=== PATIENT | male | born 1980 | race African-American/Black ===

== ENCOUNTER 2021-10-14 10:45 | Inpatient (IN) | payer OTHER, SELFPAY ==
[2021-10-14] VITALS (9 sets, daily range): BP systolic 133–199; BP diastolic 72–97; PULSE 78–103; RESP 18–23; TEMP 36.1–37; O2SAT 87–99; BMI 70.0
--- NOTE | ~2021-10-14 | CT_ITS ---
EXAMINATION: CTA chest PE protocol DATE: 10/14/2021 14:04 INDICATION: Shortness of breath. Fever. TECHNIQUE: Computed tomography angiography (CTA) of the chest was performed with 100 mL Omnipaque-350 intravenous contrast timed to evaluate the pulmonary arteries. Coronal maximum intensity projection 3D-reconstructions were created by the technologist. Automated exposure control and iterative reconst ruction technique were employed. The dose-length product was 895.92 mGy-cm. COMPARISON: CT abdomen and pelvis 12/07/2014, chest 2 views 10/14/2021 FINDINGS: There are patchy airspace and groundglass opacities throughout the lungs bilaterally. No pl eural effusion. The heart size is normal. No pericardial effusion. There is mild mediastinal lymphade nopathy, likely reactive. There is no pulmonary embolus. There is mild thoracic spondylosis. IMPRESSION: 1. No pulmonary embolus. Sensitivity is moderately decreased by motion artifact and obesity. 2. Diffuse lung disease, consistent with pneumonia. COVID-19 testing is recommended. Reviewed, dictated and finalized at location B. T OPERATIONS VICE PRESIDENT IMPRESSION: 1. No pulmonary embolus. Sensitivity is moderately decreased by motion artifact and obesity. 2. Diffuse lung disease, consistent with pneumonia. COVID-19 testing is recomme nded.
--- NOTE | ~2021-10-14 | XR_ITS ---
EXAMINATION: XR chest 2V EXAM DATE: 10/14/2021 13:05 INDICATION: Cough, low blood pressure. Recent fever. Recent UTI. TECHNIQUE: Frontal and lateral projections of the chest obtained and reviewed. There is no prior zach dy for comparison. FINDINGS: Diffuse bilateral airspace disease. Appearance is consistent with COVID pneumonia which vincent uld be considered given appearance and community prevalence. Other infectious etiologies or edema als o possible. No pneumothorax or pleural effusion. There are no osseous abnormalities identified. Cardi omediastinal silhouette is normal. IMPRESSION: Diffuse bilateral acute airspace disease consider COVID pneumonia or ARDS/edema. Reviewed, dictated and finalized at location A. MANAGEMENT COORDINATOR
--- NOTE | 2021-10-14 10:58 | PC.NURSE ---
Pt noted to be 86% on RA and mildly sob, placed on 3L via NC increasing o2 to 94%, tolerating well.
--- NOTE | 2021-10-14 11:36 | ED.BACK ---
HPI - Back Pain/Injury General Chief Complaint: Back Pain/Injury Stated Complaint: pain in back since 10/07, fever Time Seen by Provider: 10/14/21 11:36 Source: patient Mode of arrival: ambulatory Limitations: no limitations History of Present Illness HPI Narrative: Patient is a 41-year-old male complaining of low back pain, 02/10, dull, accompanied by dysuria and fever that started approximately 1 week ago. Patient also states that he has been coughing, productive, clear yellow sputum accompanied by nasal congestion and body aches. Patient states that he has a history of urinary tract infections. Patient denies any chest pain, shortness of breath, abdominal pain, nausea, vomiting or diarrhea. Related Data Allergies Allergy/AdvReac Type Severity Reaction Status Date / Time No Known Allergies Allergy Unverified 12/07/14 20:12 Review of Systems Review of Systems: All systems reviewed & are unremarkable except as noted in HPI and below Constitutional: Constitutional: Denies excessive sweating, Denies fatigue, Denies headache(s), Denies lethargy, Denies malaise, Denies weakness and Denies weight loss Eyes: Eyes: Denies blurry vision, Denies change in vision and Denies loss of vision ENT: Denies dizziness, Denies ear discharge, Denies headache(s), Denies lip swelling, Denies epistaxis, Denies nasal congestion, Denies neck pain, Denies throat swelling and Denies tongue swelling Cardiovascular: Cardiovascular: Denies chest pain, Denies chest pain at rest, Denies chest pain with activity, Denies diaphoresis, Denies rapid heart rate, Denies edema, Denies irregular heart rhythm, Denies lightheadedness, Denies palpitations, Denies dyspnea and Denies dyspnea on exertion Respiratory: Respiratory: Denies chest congestion, Denies cough, Denies hemoptysis, Denies dyspnea and Denies dyspnea on exertion Gastrointestinal: Gastrointestinal: Denies abdominal pain, Denies melena, Denies hematochezia, Denies diarrhea, Denies nausea, Denies vomiting and Denies hematemesis Musculoskeletal: Musculoskeletal: Denies abnormal gait, Denies deformity, Denies joint swelling, Denies limited range of motion, Denies neck pain and Denies numbness Neurologic: Denies Abnormal speech present, Denies abnormal gait, Denies confusion, Denies dizziness, Denies headache(s), Denies focal weakness, Denies loss of vision, Denies numbness, Denies Other visual disturbances, Denies Sensory deficit (Neuro) and Denies weakness Psychiatric: Psychiatric: Denies confusion, Denies depression, Denies auditory hallucinations, Denies homicidal ideation and Denies suicidal ideation Endocrine: Endocrine: Denies cold intolerance, Denies excessive sweating, Denies fatigue, Denies heat intolerance and Denies palpitations Hematologic/Lymphatic: Hematologic/Lymphatic: Denies easy bleeding and Denies easy bruising Allergic/Immunologic: Allergic/Immunologic: Denies lip swelling, Denies throat swelling and Denies tongue swelling Exam Const: General: cooperative, comfortable, no acute distress, well developed, alert and awake; No confusion Nutritional Appearance: obese Orientation/consciousness: oriented to person, oriented to place, oriented to time, patient oriented x3 and No confusion Limitations: no limitations HENMT: Head: normal to inspection, normocephalic and atraumatic Ears: hearing grossly normal bilaterally, TM normal on the right and TM normal on the left General nose exam: Normal external nose present, Normal nares present and No nasal discharge present Face and sinus: normal facial exam Mouth: Yes Normal oral and palatal mucosa present, Yes lip normal, Yes tongue normal and Yes oropharynx normal Throat: posterior oropharynx normal, tonsils normal and uvula midline Eyes: General: appearance normal, both eyes and all related structures Pupils: Equal, round and reactive pupils present EOM: EOMs intact bilaterally Neck: Neck: normal visual inspection, full ROM, no lymphadenopathy and no
[2021-10-14] MEDS: SODIUM CHLORIDE 0.9% IV 1,000 ML 999 ML IV CONT (12:00)
[2021-10-14 12:10] LABS: Basophils Percent Auto 0.4 % (0.2-1.2); Eosinophils Percent Auto 0.2 % (0-4.4); Hematocrit 45.8 % (42.0-52.0); Hemoglobin 15.1 g/dL (14.0-18.0); Immature Granulocyte Absolute 0.02 K/mm3 (0.00-0.031); Immature Granulocyte Percent A 0.4 % (0-0.5); Lymphocytes Absolute Auto 1.37 K/mm3 (0.9-3.2); Lymphocytes Percent Auto 27.5 % (18.3-44.2); Mean Corpuscular Hemoglobin 28.8 pg (26-34); Mean Corpuscular Volume 87.4 fl (80-100); Mean Platelet Volume 10.6 fl (7.4-10.4); Monocytes Absolute Auto 0.4 K/mm3 (0.1-0.6); Monocytes Percent Auto 8.6 % (2.6-8.5); Neutrophils Absolute Auto 3.1 K/mm3 (1.3-6.7); Neutrophils Percent Auto 62.9 % (45.5-73.1); Platelet Count Result 278 k/mm3 (150-375); Red Blood Count 5.24 M/mm3 (4.6-6.20); Red Cell Distribution Width 14.4 % (11.5-14.5)
[2021-10-14 13:08] LABS: Alanine Aminotransferase 32 U/L (4-50); Albumin Level 4.2 g/dL (3.5-5.1); Alkaline Phosphatase 80 U/L (38-126); Anion Gap 8 mmol/L (8-16); Aspartate Amino Transferase 72 U/L (17-59); Bilirubin,Total 0.4 mg/dL (0.2-1.3); Blood Urea Nitrogen 9 mg/dL (9-20); Calcium 8.5 mg/dL (8.4-10.2); Carbon Dioxide 32 mmol/L (22-30); Chloride 94 mmol/L (98-107); Estimated CRCL calculation 132 ml/min; Estimated Glomerular Filt Rate > 60; Glucose 114 mg/dL (65-110); Potassium 3.8 mmol/L (3.4-5.0); Sodium 134 mmol/L (137-145)
--- NOTE | 2021-10-14 13:36 | ECG_ITS ---
Measurements Intervals [place] Rate: 94 P: 38 WY: 139 QRS: -31 QRSD: 90 T: 64 QT: 337 QTc: 423 Interpretive Statements SINUS RHYTHM LEFT AXIS DEVIATION INCOMPLETE RIGHT BUNDLE BRANCH BLOCK POOR R WAVE PROGRESSION, ANTERIOR LEADS BORDERLINE T WAVE ABNORMALITY- HIGH LATERAL LEADS BASELINE ARTIFACT- II, III, AVF, V3-V6 BORDERLINE ECG Electronically Signed On 10-14-2021 14:24:07 [employer]ATING [employer]PERATORS ENGINEER by Manny Alcaraz D.O.
[2021-10-14 13:52] LABS: Add Urine Microscopic? YES; Appearance Urine Cloudy (Clear); Bilirubin Urine Negative (Negative); Blood Urine Negative (Negative); Color Urine Amber (Yellow); Glucose Urine UA Negative (Negative); Ketones Urine Negative (Negative); Leukocyte Esterase Ur Negative LEU/UL (Negative); Mucus Urine Few /lpf; Nitrate Urine Negative (Negative); Protein Urine 3+ mg/dL (Negative); RBC Urine 0-2 /hpf (0-2); Specific Grav Ur 1.018 (1.001-1.035); Squamous Epithelial Cell Urine Occasional /hpf (Few)
[2021-10-14 14:11] LABS: Alveolar/Arterial O2 Gradient 80.9 mmHg; Base Excess ABG 4.7 mEq/l (+/-2.0); Carboxyhemoglobin 0.2 % THb (0-2.0); Device NASAL CANNULA; Fractional Inspired Oxygen 28 %; HCO3 ABG 30.1 mEq/l (22.0-26.0); Methemoglobin ABG 0.2 %THb (0-1.5); Modified Allen's Test Pass; Oxygen Content ABG 18.8 %vol (16.0-22.0); Oxygen Saturation ABG 92.3 % (95.0-100.0); Oxyhemoglobin 90.5 % THb (90.0-100.0); PCO2 ABG 47.3 mmHg (35.0-45.0); PO2 ABG 62.9 mmHg (80.0-100.0); PO2 FiO2 Ratio Arterial Blood 2.25 %; Reduced Hemoglobin 9.1 %THb (0-5.0); Site Drawn LEFT RADIAL; Total Hemoglobin 14.8 g/dL (12.0-18.0); pH ABG 7.421 (7.350-7.450)
[2021-10-14 14:28] LABS: Prothrombin Time 13.3 Seconds (11.1-14.7)
[2021-10-14 14:29] LABS: Partial Thromboplastin Time 30.1 SECONDS (22.3-36.8)
[2021-10-14 14:39] LABS: Troponin I < 0.012 ng/mL (0.000-0.034)
--- NOTE | 2021-10-14 16:00 | PM.IMHP ---
H&P: HPI History of Present Illness Date/Time: 10/14/21 16:00 Chief Complaint: Back pain and fever. Narrative: This is a very pleasant 41-year-old male with history of pyelonephritis and hypertension no longer on medication who presented to the emergency department earlier today via private vehicle from home for evaluation of back pain and fever. Approximately 1 week ago he developed mild discomfort in the lower back as well as perhaps some mild dysuria and foamy urine. Since that time he has also developed symptoms of nasal congestion, cough productive of clear yellowish sputum, body aches, chills, decreased appetite, and fever up to 102? F. He has been taking ibuprofen at home though he continues to have symptoms and thus he came in for evaluation as he was concerned that perhaps he had another urinary tract infection. On arrival to the emergency department his SpO2 was in the mid to upper 80s on room air though he really has no significant complaints of shortness of breath. Chest x-ray showed bilateral infiltrates and a subsequent CTA of the chest showed diffuse lung disease consistent with pneumonia (no PE). He did test positive for SARS-CoV-2 by PCR. Urinalysis was negative for UTI. He was not vaccinated for COVID and has no known exposure to those positive for COVID. He denies headache, sore throat, chest pain, pleuritic pain, vomiting, and diarrhea. Review of Systems Review of Systems: Twelve systems were reviewed and are negative except for as per HPI. [facility] Past Medical History Medical History (Updated 10/14/21 @ 22:09 by Ekaterina Cuevas PA-C) Chronic low back pain Hypertension No longer on medication. Pyelonephritis Surgical History Surgical History (Updated 10/14/21 @ 22:05 by Ekaterina Cuevas PA-C) No history of previous surgery Family History Family History Father Congestive heart failure Mother Acute myocardial infarction Hypertension Social History Social History (Updated 10/14/21 @ 22:06 by Ekaterina Cuevas PA-C) Social History: The patient lives with his and 3 children. He was previously in the [employer]. He holds a master's degree in criminal justice though he is not currently working at this time. No alcohol, tobacco, or illicit substance use. He designates his Fredis as his surrogate decision maker and he wishes to be a full code. Meds Home Medications and Allergies Home Medications Medication Instructions Recorded Confirmed Type No Home Medications 10/14/21 10/14/21 History Allergies Allergy/AdvReac Type Severity Reaction Status Date / Time No Known Allergies Allergy Unverified 12/07/14 20:12 Vital Signs Vital Signs - 24 hr 10/14/21 10:48 10/14/21 11:15 10/14/21 11:39 Temperature 98.6 F Pulse Rate 103 H 99 98 Respiratory Rate 18 23 H 20 Blood Pressure 199/97 H Pulse Oximetry 87 L 92 93 10/14/21 11:45 10/14/21 15:44 10/14/21 19:14 Temperature Pulse Rate 98 78 86 Respiratory Rate 20 20 20 Blood Pressure 149/94 H 138/72 151/94 H Pulse Oximetry 96 95 99 10/14/21 20:15 Temperature 96.9 F L Pulse Rate 88 Respiratory Rate 18 Blood Pressure 137/94 H Pulse Oximetry 93 Exam Narrative: General: Mildly ill-appearing male sitting up in bed. Nontoxic in appearance. Weight: 209.1 kg. BMI: 70.1. HEENT: PERRL, EOMI. Sclerae anicteric. Oral mucosa moist. Oropharynx is crowded and poorly visualized. Neck: Supple. Exam difficult due to neck circumference. No obvious JVD or Lymphadenopathy. Respiratory: Respirations are nonlabored. Lung sounds are diminished secondary to body habitus. Cardiovascular: Regular rate and rhythm with S1-S2. Gastrointestinal: Abdomen is soft, morbidly obese,nontender, and nondistended with positive bowel sounds. No CVA tenderness. Skin: Warm and dry. No rash or lesions on limited exam. Extremities: No cyanosis, clubbing, or edema. Radial and
[2021-10-14 16:35] LABS: SARS-CoV-2 RNA PCR Positive
[2021-10-14] MEDS: REMDESIVIR 200 MG/NS 250 ML 200 MG/250 ML BAG 250 MG IVPB (16:46)
--- NOTE | 2021-10-14 20:11 | ADMGEN ---
This patient, Regan Lucero, was admitted to [address] [place] [address] Room 310-01. Patient/family oriented to hospital policies and general routines including ID bracelet, bed and alarms, visiting hours, pain management, procedures, bathroom and other care routines, personal items, smoking policy, room service/diet, and visiting hours. Information on how to activate the Rapid Response Team has been discussed. Patient/Family are encouraged to report perceived risks to care and to ask questions if they do not understand what they are told or what they should do.
[2021-10-14] MEDS: LACTATED RINGERS 1,000 ML 125 ML IV CONT (21:23)
[2021-10-15] VITALS (8 sets, daily range): BP systolic 129–163; BP diastolic 85–98; PULSE 89–99; RESP 14–18; TEMP 35.7–36.8; O2SAT 90–95
[2021-10-15 07:50] LABS: Alanine Aminotransferase 38 U/L (4-50); Albumin Level 4.1 g/dL (3.5-5.1); Alkaline Phosphatase 74 U/L (38-126); Anion Gap 9 mmol/L (8-16); Aspartate Amino Transferase 70 U/L (17-59); Bilirubin,Total 0.4 mg/dL (0.2-1.3); Blood Urea Nitrogen 10 mg/dL (9-20); CRP 2.9 mg/dL (<1.0); Calcium 8.5 mg/dL (8.4-10.2); Carbon Dioxide 31 mmol/L (22-30); Chloride 98 mmol/L (98-107); Estimated CRCL calculation 211 ml/min; Estimated Glomerular Filt Rate > 60; Glucose 123 mg/dL (65-110); Lactate Dehydrogenase 818 U/L (313-618); Magnesium 2.4 mg/dL (1.6-2.3); Potassium 4.2 mmol/L (3.4-5.0); Sodium 138 mmol/L (137-145)
[2021-10-15 08:06] LABS: Prothrombin Time 13.1 Seconds (11.1-14.7)
[2021-10-15 08:14] LABS: Hematocrit 44.5 % (42.0-52.0); Hemoglobin 14.7 g/dL (14.0-18.0); Immature Granulocyte Absolute 0.02 K/mm3 (0.00-0.031); Immature Granulocyte Percent A 0.6 % (0-0.5); Lymphocytes Absolute Auto 1.04 K/mm3 (0.9-3.2); Lymphocytes Percent Auto 31.8 % (18.3-44.2); Mean Corpuscular Hemoglobin 28.7 pg (26-34); Mean Corpuscular Volume 86.7 fl (80-100); Mean Platelet Volume 10.4 fl (7.4-10.4); Monocytes Absolute Auto 0.5 K/mm3 (0.1-0.6); Monocytes Percent Auto 16.5 % (2.6-8.5); Neutrophils Absolute Auto 1.7 K/mm3 (1.3-6.7); Neutrophils Percent Auto 51.1 % (45.5-73.1); Platelet Count Result 293 k/mm3 (150-375); Red Blood Count 5.13 M/mm3 (4.6-6.20); Red Cell Distribution Width 14.2 % (11.5-14.5); White Blood Count 3.3 K/mm3 (4.5-10.0)
[2021-10-15] MEDS: ENOXAPARIN 40 MG/0.4 ML SYRINGE SUB-Q (08:47)
[2021-10-15 08:55] LABS: Thyroid Stimulating Hormone Reflex 0.338 uIU/mL (0.465-4.68)
[2021-10-15 11:24] LABS: Free T4 Free Thyroxine Reflex 1.26 ng/dL (0.78-2.19)
[2021-10-15 12:23] LABS: Total Triiodothyronine (T3) 0.89 NG/ML (0.97-1.69)
--- NOTE | 2021-10-15 15:59 | PM.IMPN ---
Progress Note: A&P Assessment and Plan (1) Acute respiratory failure with hypoxia: Code(s): J96.01 - Acute respiratory failure with hypoxia Status: Acute Assessment and Plan: Secondary to diffuse COVID pneumonia noted on chest CT. Currently on 4L NC. (2) Pneumonia due to COVID-19 virus: Code(s): U07.1 - COVID-19; J12.82 - Pneumonia due to coronavirus disease 2019 Status: Acute Assessment and Plan: He has been started on remdesivir and dexamethasone per COVID protocol. Continue isolation status. Albuterol MDI available if needed. Trend inflammatory markers. (3) Proteinuria: Code(s): R80.9 - Proteinuria, unspecified Status: Acute Assessment and Plan: Patient describes having foamy urine. He will need to have this followed up as an outpatient. (4) Hypertension: Code(s): I10 - Essential (primary) hypertension Status: Inactive Assessment and Plan: Blood pressures were reviewed and they are reasonable but not at goal. He has not been on antihypertensives for a couple of years. For now will monitor blood pressures closely and think about resuming medications depending on how he trends. Subjective Date/time seen: 10/15/21 15:59 Interval history: Pt is a 41-year-old male with history of pyelonephritis and hypertension no longer on medication, admitted to the hospital for acute respiratory failure secondary to covid pneumonia. Today he states he is feeling better. He was able to wean down from 5L to 4L NC today and feels his sob is improving. He was ambulating around his room today. He still has a mild cough but otherwise states all of his symptoms are overall improving. Review of Systems Review of Systems: General: Denies fevers Eyes: Denies vision changes ENT: Denies nasal congestion or sore throat Respiratory: + cough, +shortness of breath Cardiovascular: Denies chest pain or lower extremity edema Gastrointestinal: Denies abdominal pain, vomiting, or diarrhea Genitourinary: Denies dysuria Musculoskeletal: Denies back pain Neurological: Denies headache or motor weakness Integumentary: Denies rash Exam Narrative: General: No acute distress, non toxic appearing, morbidly obese Eyes: PERRL, no scleral icterus HEENT: NCAT, external ears normal, MMM Respiratory: No respiratory distress, distant breath sounds bilaterally secondary to body habitus Cardiovascular: RRR, no murmur Abdominal: Soft, nontender, non distended, no rebound or guarding Musculoskeletal: Moves all 4 extremities, no edema Neurological: A/Ox3, speech normal, no facial asymmetry Skin: Warm, dry, no rashes Psychiatric: Normal affect, normal mood Objective Data Vital Signs Vital Signs: Vital Signs - 24 hr 10/14/21 19:14 10/14/21 20:15 10/14/21 22:00 Temperature 96.9 F L 97.9 F Pulse Rate 86 88 80 Respiratory Rate 20 18 20 Blood Pressure 151/94 H 137/94 H 133/85 Pulse Oximetry 99 93 91 10/14/21 22:11 10/15/21 06:00 10/15/21 08:00 Temperature 96.2 F L 97.7 F Pulse Rate 88 92 89 Respiratory Rate 18 18 14 Blood Pressure 129/85 153/91 H Pulse Oximetry 93 90 93 10/15/21 12:09 Temperature 98.3 F Pulse Rate 92 Respiratory Rate 14 Blood Pressure 151/96 H Pulse Oximetry 92 Intake/Output Intake/Output: Intake & Output 10/12/21 10/13/21 10/14/21 10/15/21 23:59 23:59 23:59 23:59 Intake Total 1250 1040 Balance 1250 1040 Meds/Results Medications: Active Medications Generic Name Dose Route Start Last Admin Trade Name Freq PRN Reason Stop Dose Admin Albuterol 2 puff 10/14/21 22:12 Albuterol Sulfate (*Sp) Aerosol 1 Puff INHALATION QIDRT PRN Shortness Of Breath Dexamethasone Sodium Phosphate 6 mg 10/14/21 22:15 10/15/21 00:05 Dexamethasone Sod Phos Inj 10 Mg/Ml 1 Ml Vial IV PUSH 10/23/21 21:01 Not Given DAILY@2100 [facility] Enoxaparin Sodium 40 mg 10/15/21 09:00 10/15/21 08:47 Enoxapar
[2021-10-15] MEDS: REMDESIVIR 100 MG/NS 250 ML 100 MG/250 ML BAG 250 MG IVPB (21:15)
[2021-10-16 02:10] VITALS: BP 148/89; PULSE 95; RESP 18; TEMP 37.7; O2SAT 92
[2021-10-16 06:00] VITALS: BP 146/91; PULSE 93; RESP 18; TEMP 36.9; O2SAT 92
[2021-10-16 07:28] LABS: Basophils Percent Auto 0.2 % (0.2-1.2); Eosinophils Percent Auto 0.2 % (0-4.4); Hematocrit 46.5 % (42.0-52.0); Hemoglobin 14.8 g/dL (14.0-18.0); Immature Granulocyte Absolute 0.03 K/mm3 (0.00-0.031); Immature Granulocyte Percent A 0.6 % (0-0.5); Immature Platelet Fraction Pct 5.2 % (0.9-11.2); Lymphocytes Absolute Auto 0.93 K/mm3 (0.9-3.2); Lymphocytes Percent Auto 17.2 % (18.3-44.2); Mean Corpuscular HGB Conc 31.8 g/dl (32-36); Mean Corpuscular Hemoglobin 28.6 pg (26-34); Mean Corpuscular Volume 89.8 fl (80-100); Mean Platelet Volume 11.3 fl (7.4-10.4); Monocytes Absolute Auto 0.5 K/mm3 (0.1-0.6); Monocytes Percent Auto 8.7 % (2.6-8.5); Neutrophils Percent Auto 73.1 % (45.5-73.1); Platelet Count Result 284 k/mm3 (150-375); Red Blood Count 5.18 M/mm3 (4.6-6.20); Red Cell Distribution Width 14.4 % (11.5-14.5); White Blood Count 5.4 K/mm3 (4.5-10.0)
[2021-10-16 07:59] LABS: Alanine Aminotransferase 44 U/L (4-50); Alkaline Phosphatase 70 U/L (38-126); Anion Gap 11 mmol/L (8-16); Aspartate Amino Transferase 74 U/L (17-59); Bilirubin,Total 0.3 mg/dL (0.2-1.3); Blood Urea Nitrogen 13 mg/dL (9-20); CRP 2.8 mg/dL (<1.0); Calcium 8.8 mg/dL (8.4-10.2); Carbon Dioxide 29 mmol/L (22-30); Chloride 97 mmol/L (98-107); Estimated CRCL calculation 211 ml/min; Estimated Glomerular Filt Rate > 60; Glucose 118 mg/dL (65-110); Sodium 137 mmol/L (137-145)
[2021-10-16 08:00] VITALS: O2SAT 90
[2021-10-16 08:10] LABS: Prothrombin Time 13.2 Seconds (11.1-14.7)
[2021-10-16] MEDS: ENOXAPARIN 40 MG/0.4 ML SYRINGE SUB-Q (09:09)
[2021-10-16 12:00] VITALS: BP 163/96; PULSE 90; RESP 14; TEMP 36.7; O2SAT 90
--- NOTE | 2021-10-16 13:39 | PM.IMPN ---
Progress Note: A&P Assessment and Plan (1) Acute respiratory failure with hypoxia: Code(s): J96.01 - Acute respiratory failure with hypoxia Status: Acute Assessment and Plan: Secondary to diffuse COVID pneumonia noted on chest CT. Currently on 4L NC. (2) Pneumonia due to COVID-19 virus: Code(s): U07.1 - COVID-19; J12.82 - Pneumonia due to coronavirus disease 2019 Status: Acute Assessment and Plan: He has been started on remdesivir and dexamethasone per COVID protocol. Continue isolation status. Albuterol MDI available if needed. Trend inflammatory markers. (3) Proteinuria: Code(s): R80.9 - Proteinuria, unspecified Status: Acute Assessment and Plan: Patient describes having foamy urine. He will need to have this followed up as an outpatient. (4) Hypertension: Code(s): I10 - Essential (primary) hypertension Status: Inactive Assessment and Plan: Blood pressures were reviewed and they are reasonable but not at goal. He has not been on antihypertensives for a couple of years. For now will monitor blood pressures closely and think about resuming medications depending on how he trends. Subjective Date/time seen: 10/16/21 13:39 Interval history: Pt is a 41-year-old male with history of pyelonephritis and hypertension no longer on medication, admitted to the hospital for acute respiratory failure secondary to covid pneumonia. Today he states he is feeling better. He is currently on 4L NC. He was ambulating around his room today and laying prone when I was examining him. He still has a mild cough but otherwise states all of his symptoms are overall improving. Review of Systems Review of Systems: General: Denies fevers Eyes: Denies vision changes ENT: Denies nasal congestion or sore throat Respiratory: + cough, +shortness of breath Cardiovascular: Denies chest pain or lower extremity edema Gastrointestinal: Denies abdominal pain, vomiting, or diarrhea Genitourinary: Denies dysuria Musculoskeletal: Denies back pain Neurological: Denies headache or motor weakness Integumentary: Denies rash Exam Narrative: General: No acute distress, non toxic appearing, morbidly obese Eyes: PERRL, no scleral icterus HEENT: NCAT, external ears normal, MMM Respiratory: No respiratory distress, distant breath sounds bilaterally secondary to body habitus Cardiovascular: RRR, no murmur Abdominal: Soft, nontender, non distended, no rebound or guarding Musculoskeletal: Moves all 4 extremities, no edema Neurological: A/Ox3, speech normal, no facial asymmetry Skin: Warm, dry, no rashes Psychiatric: Normal affect, normal mood Objective Data Vital Signs Vital Signs: Vital Signs - 24 hr 10/15/21 14:00 10/15/21 17:25 10/15/21 20:00 Temperature 97.8 F Pulse Rate 92 99 Respiratory Rate 14 18 Blood Pressure 145/98 H Pulse Oximetry 95 90 92 10/15/21 20:50 10/15/21 22:28 10/16/21 02:10 Temperature 98.2 F 97.8 F 99.8 F H Pulse Rate 97 99 95 Respiratory Rate 18 18 18 Blood Pressure 163/94 H 139/87 148/89 H Pulse Oximetry 91 92 92 10/16/21 06:00 10/16/21 08:00 Temperature 98.4 F Pulse Rate 93 Respiratory Rate 18 Blood Pressure 146/91 H Pulse Oximetry 92 90 Intake/Output Intake/Output: Intake & Output 10/13/21 10/14/21 10/15/21 10/16/21 23:59 23:59 23:59 23:59 Intake Total 1250 1530 558 Output Total 900 Balance 1250 1530 -342 Meds/Results Medications: Active Medications Generic Name Dose Route Start Last Admin Trade Name Freq PRN Reason Stop Dose Admin Albuterol 2 puff 10/14/21 22:12 Albuterol Sulfate (*Sp) Aerosol 1 Puff INHALATION QIDRT PRN Shortness Of Breath Dexamethasone Sodium Phosphate 6 mg 10/14/21 22:15 10/15/21 21:12 Dexamethasone Sod Phos Inj 10 Mg/Ml 1 Ml Vial IV PUSH 10/23/21 21:01 6 mg DAILY@2100 [facility] Administration Enoxaparin Sodium 40 mg 10/15/21 0
[2021-10-16 14:00] VITALS: BP 137/91; PULSE 89; RESP 14; TEMP 36.6; O2SAT 90
[2021-10-16 20:00] VITALS: BP 140/88; PULSE 89; PULSE 90; RESP 14; RESP 18; TEMP 36.8; O2SAT 90
[2021-10-16] MEDS: REMDESIVIR 100 MG/NS 250 ML 100 MG/250 ML BAG 250 MG IVPB (21:03)
[2021-10-17] VITALS: BP 129/70; PULSE 86; RESP 18; TEMP 36.6; O2SAT 90
[2021-10-17 03:55] VITALS: BP 128/66; PULSE 87; RESP 18; TEMP 36.4; O2SAT 90
[2021-10-17 07:22] LABS: Basophils Percent Auto 0.2 % (0.2-1.2); Hematocrit 43.7 % (42.0-52.0); Hemoglobin 14.1 g/dL (14.0-18.0); Immature Granulocyte Absolute 0.04 K/mm3 (0.00-0.031); Immature Granulocyte Percent A 0.8 % (0-0.5); Lymphocytes Absolute Auto 1.09 K/mm3 (0.9-3.2); Lymphocytes Percent Auto 20.6 % (18.3-44.2); Mean Corpuscular HGB Conc 32.3 g/dl (32-36); Mean Corpuscular Volume 89.7 fl (80-100); Mean Platelet Volume 10.3 fl (7.4-10.4); Monocytes Absolute Auto 0.6 K/mm3 (0.1-0.6); Monocytes Percent Auto 11.1 % (2.6-8.5); Neutrophils Absolute Auto 3.6 K/mm3 (1.3-6.7); Neutrophils Percent Auto 67.3 % (45.5-73.1); Platelet Count Result 302 k/mm3 (150-375); Red Blood Count 4.87 M/mm3 (4.6-6.20); Red Cell Distribution Width 14.5 % (11.5-14.5); White Blood Count 5.3 K/mm3 (4.5-10.0)
[2021-10-17 07:52] LABS: Alanine Aminotransferase 48 U/L (4-50); Albumin Level 3.9 g/dL (3.5-5.1); Alkaline Phosphatase 69 U/L (38-126); Anion Gap 6 mmol/L (8-16); Aspartate Amino Transferase 65 U/L (17-59); Bilirubin,Total 0.3 mg/dL (0.2-1.3); Blood Urea Nitrogen 11 mg/dL (9-20); CRP 2.3 mg/dL (<1.0); Calcium 8.5 mg/dL (8.4-10.2); Carbon Dioxide 34 mmol/L (22-30); Chloride 96 mmol/L (98-107); Estimated CRCL calculation 210 ml/min; Estimated Glomerular Filt Rate > 60; Glucose 129 mg/dL (65-110); Potassium 4.4 mmol/L (3.4-5.0); Sodium 136 mmol/L (137-145)
[2021-10-17 08:00] VITALS: BP 148/84; PULSE 83; RESP 18; TEMP 36.1; O2SAT 90
[2021-10-17 08:03] LABS: Prothrombin Time 12.9 Seconds (11.1-14.7)
[2021-10-17] MEDS: ENOXAPARIN 40 MG/0.4 ML SYRINGE SUB-Q (09:39)
[2021-10-17 12:00] VITALS: BP 138/81; PULSE 85; RESP 18; TEMP 36.2; O2SAT 93
--- NOTE | 2021-10-17 13:50 | PM.IMPN ---
Progress Note: A&P Assessment and Plan (1) Acute respiratory failure with hypoxia: Code(s): J96.01 - Acute respiratory failure with hypoxia Status: Acute Assessment and Plan: Secondary to diffuse COVID pneumonia noted on chest CT. Currently on 6L NC. (2) Pneumonia due to COVID-19 virus: Code(s): U07.1 - COVID-19; J12.82 - Pneumonia due to coronavirus disease 2019 Status: Acute Assessment and Plan: -Remdesivir and dexamethasone #3 -Continue isolation status. -Albuterol MDI available if needed. -Trend inflammatory markers. -currently on 6L NC (3) Proteinuria: Code(s): R80.9 - Proteinuria, unspecified Status: Acute Assessment and Plan: Patient describes having foamy urine. He will need to have this followed up as an outpatient. (4) Hypertension: Code(s): I10 - Essential (primary) hypertension Status: Inactive Assessment and Plan: Blood pressures were reviewed and they are reasonable but not at goal. He has not been on antihypertensives for a couple of years. For now will monitor blood pressures closely and think about resuming medications depending on how he trends. Subjective Date/time seen: 10/17/21 13:50 Interval history: Pt is a 41-year-old male with history of pyelonephritis and hypertension no longer on medication, admitted to the hospital for acute respiratory failure secondary to covid pneumonia. Today patient is feeling okay. His oxygen was upped to 6L NC and he is resting comfortably. He is using the incentive spirometer as much as possible as well as lying prone. Still having a cough. No symptoms otherwise. Review of Systems Review of Systems: General: Denies fevers Eyes: Denies vision changes ENT: Denies nasal congestion or sore throat Respiratory: + cough, +shortness of breath Cardiovascular: Denies chest pain or lower extremity edema Gastrointestinal: Denies abdominal pain, vomiting, or diarrhea Genitourinary: Denies dysuria Musculoskeletal: Denies back pain Neurological: Denies headache or motor weakness Integumentary: Denies rash Exam Narrative: General: No acute distress, non toxic appearing, morbidly obese Eyes: PERRL, no scleral icterus HEENT: NCAT, external ears normal, MMM Respiratory: No respiratory distress, distant breath sounds bilaterally secondary to body habitus, on 6L NC Cardiovascular: RRR, no murmur Abdominal: Soft, nontender, non distended, no rebound or guarding Musculoskeletal: Moves all 4 extremities, no edema Neurological: A/Ox3, speech normal, no facial asymmetry Skin: Warm, dry, no rashes Psychiatric: Normal affect, normal mood Objective Data Vital Signs Vital Signs: Vital Signs - 24 hr 10/16/21 14:00 10/16/21 20:00 10/17/21 00:00 Temperature 97.9 F 98.3 F 97.9 F Pulse Rate 89 90 86 Respiratory Rate 14 18 18 Blood Pressure 137/91 H 140/88 129/70 Pulse Oximetry 90 90 90 10/17/21 03:55 10/17/21 08:00 10/17/21 12:00 Temperature 97.5 F L 96.9 F L 97.1 F L Pulse Rate 87 83 85 Respiratory Rate 18 18 18 Blood Pressure 128/66 148/84 H 138/81 Pulse Oximetry 90 90 93 Intake/Output Intake/Output: Intake & Output 10/14/21 10/15/21 10/16/21 10/17/21 23:59 23:59 23:59 23:59 Intake Total 1250 1530 1274 440 Output Total 900 600 Balance 1250 1530 374 -160 Meds/Results Medications: Active Medications Generic Name Dose Route Start Last Admin Trade Name Freq PRN Reason Stop Dose Admin Albuterol 2 puff 10/14/21 22:12 Albuterol Sulfate (*Sp) Aerosol 1 Puff INHALATION QIDRT PRN Shortness Of Breath Dexamethasone Sodium Phosphate 6 mg 10/14/21 22:15 10/16/21 21:03 Dexamethasone Sod Phos Inj 10 Mg/Ml 1 Ml Vial IV PUSH 10/23/21 21:01 6 mg DAILY@2100 [facility] Administration Enoxaparin Sodium 40 mg 10/15/21 09:00 10/17/21 09:39 Enoxaparin 40 Mg/0.4 Ml Syringe SUB-Q 40 mg DAILY [facility] Administration Guaifene
[2021-10-17 16:00] VITALS: BP 136/83; PULSE 94; RESP 18; TEMP 36.4; O2SAT 90
[2021-10-17 20:00] VITALS: BP 140/86; PULSE 93; RESP 18; TEMP 36.5; O2SAT 91
[2021-10-17] MEDS: REMDESIVIR 100 MG/NS 250 ML 100 MG/250 ML BAG 250 MG IVPB (21:34)
[2021-10-18 04:00] VITALS: BP 135/76; PULSE 878; RESP 18; TEMP 36.5; O2SAT 90
[2021-10-18 07:21] LABS: Basophils Percent Auto 0.3 % (0.2-1.2); Hematocrit 45.7 % (42.0-52.0); Hemoglobin 14.6 g/dL (14.0-18.0); Immature Granulocyte Absolute 0.06 K/mm3 (0.00-0.031); Immature Granulocyte Percent A 0.8 % (0-0.5); Lymphocytes Absolute Auto 1.14 K/mm3 (0.9-3.2); Lymphocytes Percent Auto 15.6 % (18.3-44.2); Mean Corpuscular HGB Conc 31.9 g/dl (32-36); Mean Corpuscular Hemoglobin 28.9 pg (26-34); Mean Corpuscular Volume 90.5 fl (80-100); Mean Platelet Volume 10.1 fl (7.4-10.4); Monocytes Absolute Auto 0.6 K/mm3 (0.1-0.6); Monocytes Percent Auto 7.9 % (2.6-8.5); Neutrophils Absolute Auto 5.5 K/mm3 (1.3-6.7); Neutrophils Percent Auto 75.4 % (45.5-73.1); Platelet Count Result 333 k/mm3 (150-375); Red Blood Count 5.05 M/mm3 (4.6-6.20); Red Cell Distribution Width 14.6 % (11.5-14.5); White Blood Count 7.3 K/mm3 (4.5-10.0)
[2021-10-18 07:28] LABS: Alanine Aminotransferase 51 U/L (4-50); Albumin Level 3.9 g/dL (3.5-5.1); Alkaline Phosphatase 74 U/L (38-126); Anion Gap 8 mmol/L (8-16); Aspartate Amino Transferase 58 U/L (17-59); Bilirubin,Total 0.4 mg/dL (0.2-1.3); Blood Urea Nitrogen 11 mg/dL (9-20); CRP 1.9 mg/dL (<1.0); Calcium 8.9 mg/dL (8.4-10.2); Carbon Dioxide 33 mmol/L (22-30); Chloride 96 mmol/L (98-107); Estimated CRCL calculation 210 ml/min; Estimated Glomerular Filt Rate > 60; Glucose 137 mg/dL (65-110); Potassium 4.5 mmol/L (3.4-5.0); Sodium 137 mmol/L (137-145)
[2021-10-18 07:41] LABS: Prothrombin Time 12.9 Seconds (11.1-14.7)
[2021-10-18 08:00] VITALS: BP 106/65; PULSE 83; RESP 16; TEMP 36.3; O2SAT 93
[2021-10-18] MEDS: ENOXAPARIN 40 MG/0.4 ML SYRINGE SUB-Q (09:38)
[2021-10-18 12:00] VITALS: BP 116/71; PULSE 87; RESP 16; TEMP 36.5; O2SAT 95
--- NOTE | 2021-10-18 12:15 | PM.IMPN ---
Progress Note: A&P Assessment and Plan (1) Acute respiratory failure with hypoxia: Code(s): J96.01 - Acute respiratory failure with hypoxia Status: Acute Assessment and Plan: -Secondary to diffuse COVID pneumonia noted on chest CT. -Currently on 6L NC. (2) Pneumonia due to COVID-19 virus: Code(s): U07.1 - COVID-19; J12.82 - Pneumonia due to coronavirus disease 2019 Status: Acute Assessment and Plan: -Remdesivir and dexamethasone #4 -Continue isolation status -Albuterol MDI changed to scheduled as he is now having wheezing -CRP still mildly elevated but improving -currently on 6L NC (3) Proteinuria: Code(s): R80.9 - Proteinuria, unspecified Status: Acute Assessment and Plan: -Patient describes having foamy urine. He will need to have this followed up as an outpatient. (4) Hypertension: Code(s): I10 - Essential (primary) hypertension Status: Inactive Assessment and Plan: -Blood pressures were reviewed and they are reasonable but not at goal. He has not been on antihypertensives for a couple of years. For now will monitor blood pressures closely and think about resuming medications depending on how he trends. Subjective Date/time seen: 10/18/21 12:15 Interval history: Pt is a 41-year-old male with history of pyelonephritis and hypertension no longer on medication, admitted to the hospital for acute respiratory failure secondary to covid pneumonia. Today patient is feeling okay. He still has mild cough. Having mild sob, still on 6L NC. Review of Systems Review of Systems: General: Denies fevers Eyes: Denies vision changes ENT: Denies nasal congestion or sore throat Respiratory: + cough, +shortness of breath Cardiovascular: Denies chest pain or lower extremity edema Gastrointestinal: Denies abdominal pain, vomiting, or diarrhea Genitourinary: Denies dysuria Musculoskeletal: Denies back pain Neurological: Denies headache or motor weakness Integumentary: Denies rash Exam Narrative: General: No acute distress, non toxic appearing, morbidly obese Eyes: PERRL, no scleral icterus HEENT: NCAT, external ears normal, MMM Respiratory: No respiratory distress, distant breath sounds bilaterally secondary to body habitus, wheezing left upper lobe, on 6L NC Cardiovascular: RRR, no murmur Abdominal: Soft, nontender, non distended, no rebound or guarding Musculoskeletal: Moves all 4 extremities, no edema Neurological: A/Ox3, speech normal, no facial asymmetry Skin: Warm, dry, no rashes Psychiatric: Normal affect, normal mood Objective Data Vital Signs Vital Signs: Vital Signs - 24 hr 10/17/21 16:00 10/17/21 20:00 10/18/21 04:00 Temperature 97.5 F L 97.7 F 97.7 F Pulse Rate 94 93 878 H Respiratory Rate 18 18 18 Blood Pressure 136/83 140/86 135/76 Pulse Oximetry 90 91 90 10/18/21 08:00 Temperature 97.4 F L Pulse Rate 83 Respiratory Rate 16 Blood Pressure 106/65 Pulse Oximetry 93 Intake/Output Intake/Output: Intake & Output 10/15/21 10/16/21 10/17/21 10/18/21 23:59 23:59 23:59 23:59 Intake Total 1530 1524 1720 1240 Output Total 900 1150 900 Balance 1530 624 570 340 Meds/Results Medications: Active Medications Generic Name Dose Route Start Last Admin Trade Name Freq PRN Reason Stop Dose Admin Albuterol 2 puff 10/18/21 12:00 Albuterol Sulfate (*Sp) Aerosol 1 Puff INHALATION QIDRT [facility] Dexamethasone Sodium Phosphate 6 mg 10/14/21 22:15 10/17/21 21:33 Dexamethasone Sod Phos Inj 10 Mg/Ml 1 Ml Vial IV PUSH 10/23/21 21:01 6 mg DAILY@2100 [facility] Administration Enoxaparin Sodium 40 mg 10/15/21 09:00 10/18/21 09:38 Enoxaparin 40 Mg/0.4 Ml Syringe SUB-Q 40 mg DAILY [facility] Administration Guaifenesin/Codeine Phosphate 10 ml 10/16/21 13:37 Guaifenesin/Codeine (*Crx) 200/20 Mg 10 Ml Syrup PO Q4H PRN Cough Remdesivir 100 mg in 250 mls @ 250
[2021-10-18 16:00] VITALS: BP 140/96; PULSE 91; RESP 20; TEMP 36.7; O2SAT 91
--- NOTE | 2021-10-18 17:49 | PCRCNOTE ---
Window of time for administration has passed. See next scheduled administration.
[2021-10-18] MEDS: ALBUTEROL SULFATE (*SP) INHALER 2 PUFF INHALATION (20:54)
[2021-10-18] MEDS: REMDESIVIR 100 MG/NS 250 ML 100 MG/250 ML BAG 250 MG IVPB (21:19)
[2021-10-18 23:54] VITALS: BP 135/89; PULSE 87; RESP 18; TEMP 36.1; O2SAT 93
[2021-10-19] VITALS (8 sets, daily range): BP systolic 124–151; BP diastolic 81–90; PULSE 78–95; RESP 12–20; TEMP 35.9–37.1; O2SAT 91–96
[2021-10-19 06:25] LABS: Basophils Percent Auto 0.2 % (0.2-1.2); Hematocrit 45.2 % (42.0-52.0); Hemoglobin 14.5 g/dL (14.0-18.0); Immature Granulocyte Percent A 1.2 % (0-0.5); Lymphocytes Absolute Auto 1.23 K/mm3 (0.9-3.2); Lymphocytes Percent Auto 15.1 % (18.3-44.2); Mean Corpuscular HGB Conc 32.1 g/dl (32-36); Mean Corpuscular Hemoglobin 28.5 pg (26-34); Mean Platelet Volume 9.8 fl (7.4-10.4); Monocytes Absolute Auto 0.7 K/mm3 (0.1-0.6); Monocytes Percent Auto 8.6 % (2.6-8.5); Neutrophils Absolute Auto 6.1 K/mm3 (1.3-6.7); Neutrophils Percent Auto 74.9 % (45.5-73.1); Platelet Count Result 424 k/mm3 (150-375); Red Blood Count 5.08 M/mm3 (4.6-6.20); Red Cell Distribution Width 14.4 % (11.5-14.5); White Blood Count 8.2 K/mm3 (4.5-10.0)
[2021-10-19 06:44] LABS: Alanine Aminotransferase 52 U/L (4-50); Albumin Level 3.9 g/dL (3.5-5.1); Alkaline Phosphatase 73 U/L (38-126); Anion Gap 7 mmol/L (8-16); Aspartate Amino Transferase 50 U/L (17-59); Bilirubin,Total 0.4 mg/dL (0.2-1.3); Blood Urea Nitrogen 12 mg/dL (9-20); Carbon Dioxide 31 mmol/L (22-30); Chloride 98 mmol/L (98-107); Estimated CRCL calculation 209 ml/min; Estimated Glomerular Filt Rate > 60; Glucose 140 mg/dL (65-110); Potassium 4.6 mmol/L (3.4-5.0); Sodium 136 mmol/L (137-145)
[2021-10-19 08:08] LABS: D Dimer 0.23 ug/mL (<0.48)
[2021-10-19 08:40] LABS: Prothrombin Time 13.2 Seconds (11.1-14.7)
[2021-10-19] MEDS: ALBUTEROL SULFATE (*SP) INHALER 2 PUFF INHALATION ×4 (09:15→20:36)
[2021-10-19] MEDS: ENOXAPARIN 40 MG/0.4 ML SYRINGE SUB-Q (09:20)
--- NOTE | 2021-10-19 13:30 | PM.IMPN ---
Progress Note: A&P Assessment and Plan (1) Acute respiratory failure with hypoxia: Code(s): J96.01 - Acute respiratory failure with hypoxia Status: Acute Assessment and Plan: -Secondary to diffuse COVID pneumonia noted on chest CT. -Currently on 5L NC. (2) Pneumonia due to COVID-19 virus: Code(s): U07.1 - COVID-19; J12.82 - Pneumonia due to coronavirus disease 2019 Status: Acute Assessment and Plan: -Remdesivir and dexamethasone #5 -Continue isolation status -Albuterol MDI changed from prn to scheduled as he was having wheezing -CRP still mildly elevated but improving -currently on 5L NC (3) Proteinuria: Code(s): R80.9 - Proteinuria, unspecified Status: Acute Assessment and Plan: -Patient describes having foamy urine. He will need to have this followed up as an outpatient. (4) Hypertension: Code(s): I10 - Essential (primary) hypertension Status: Inactive Assessment and Plan: -Blood pressures were reviewed and they are reasonable but not at goal. He has not been on antihypertensives for a couple of years. For now will monitor blood pressures closely and think about resuming medications depending on how he trends. Subjective Date/time seen: 10/19/21 13:30 Interval history: Pt is a 41-year-old male with history of pyelonephritis and hypertension no longer on medication, admitted to the hospital for acute respiratory failure secondary to covid pneumonia. Today patient is feeling okay. He still has mild cough. Having mild sob, weaned down to 5L NC. Review of Systems Review of Systems: General: Denies fevers Eyes: Denies vision changes ENT: Denies nasal congestion or sore throat Respiratory: + cough, +shortness of breath Cardiovascular: Denies chest pain or lower extremity edema Gastrointestinal: Denies abdominal pain, vomiting, + diarrhea Genitourinary: Denies dysuria Musculoskeletal: Denies back pain Neurological: Denies headache or motor weakness Integumentary: Denies rash Exam Narrative: General: No acute distress, non toxic appearing, morbidly obese Eyes: PERRL, no scleral icterus HEENT: NCAT, external ears normal, MMM Respiratory: No respiratory distress, distant breath sounds bilaterally secondary to body habitus, lungs CTA, no wheezing or rhonchi, on 5L NC Cardiovascular: RRR, no murmur Abdominal: Soft, nontender, non distended, no rebound or guarding Musculoskeletal: Moves all 4 extremities, no edema Neurological: A/Ox3, speech normal, no facial asymmetry Skin: Warm, dry, no rashes Psychiatric: Normal affect, normal mood Objective Data Vital Signs Vital Signs: Vital Signs - 24 hr 10/18/21 16:00 10/18/21 23:54 10/19/21 04:00 Temperature 98.0 F 97 F L 97.2 F L Pulse Rate 91 87 92 Respiratory Rate 20 18 12 Blood Pressure 140/96 H 135/89 132/81 Pulse Oximetry 91 93 91 10/19/21 08:00 10/19/21 12:00 Temperature 98.8 F 97.2 F L Pulse Rate 88 92 Respiratory Rate 20 14 Blood Pressure 132/90 142/82 H Pulse Oximetry 91 96 Intake/Output Intake/Output: Intake & Output 10/16/21 10/17/21 10/18/21 10/19/21 23:59 23:59 23:59 23:59 Intake Total 1524 1720 2220 860 Output Total 900 1150 900 Balance 786 445 1663 860 Meds/Results Medications: Active Medications Generic Name Dose Route Start Last Admin Trade Name Freq PRN Reason Stop Dose Admin Albuterol 2 puff 10/18/21 20:00 10/19/21 11:36 Albuterol Sulfate (*Sp) Inhaler INHALATION 2 puff QIDRT [facility] Administration Dexamethasone Sodium Phosphate 6 mg 10/14/21 22:15 10/18/21 21:19 Dexamethasone Sod Phos Inj 10 Mg/Ml 1 Ml Vial IV PUSH 10/23/21 21:01 6 mg DAILY@2100 [facility] Administration Enoxaparin Sodium 40 mg 10/15/21 09:00 10/19/21 09:20 Enoxaparin 40 Mg/0.4 Ml Syringe SUB-Q 40 mg DAILY [facility] Administration Guaifenesin/Codeine Phosphate 10 ml 10/16/21 13:37 Guaifenesin/Codeine (*
[2021-10-19] MEDS: REMDESIVIR 100 MG/NS 250 ML 100 MG/250 ML BAG 250 MG IVPB (20:27)
[2021-10-20] VITALS (8 sets, daily range): BP systolic 135–146; BP diastolic 72–90; PULSE 71–102; RESP 18–20; TEMP 36.1–36.7; O2SAT 91–98
[2021-10-20 06:48] LABS: Basophils Percent Auto 0.3 % (0.2-1.2); Eosinophils Percent Auto 0.1 % (0-4.4); Hematocrit 43.9 % (42.0-52.0); Hemoglobin 14.2 g/dL (14.0-18.0); Immature Granulocyte Absolute 0.16 K/mm3 (0.00-0.031); Immature Granulocyte Percent A 1.7 % (0-0.5); Lymphocytes Absolute Auto 1.49 K/mm3 (0.9-3.2); Lymphocytes Percent Auto 15.6 % (18.3-44.2); Mean Corpuscular HGB Conc 32.3 g/dl (32-36); Mean Corpuscular Hemoglobin 28.9 pg (26-34); Mean Corpuscular Volume 89.4 fl (80-100); Mean Platelet Volume 9.8 fl (7.4-10.4); Monocytes Absolute Auto 0.9 K/mm3 (0.1-0.6); Monocytes Percent Auto 9.1 % (2.6-8.5); Neutrophils Percent Auto 73.2 % (45.5-73.1); Platelet Count Result 510 k/mm3 (150-375); Red Blood Count 4.91 M/mm3 (4.6-6.20); Red Cell Distribution Width 14.5 % (11.5-14.5); White Blood Count 9.6 K/mm3 (4.5-10.0)
[2021-10-20 07:03] LABS: Alanine Aminotransferase 51 U/L (4-50); Albumin Level 3.8 g/dL (3.5-5.1); Alkaline Phosphatase 71 U/L (38-126); Anion Gap 7 mmol/L (8-16); Aspartate Amino Transferase 44 U/L (17-59); Bilirubin,Total 0.4 mg/dL (0.2-1.3); Blood Urea Nitrogen 12 mg/dL (9-20); CRP 1.3 mg/dL (<1.0); Calcium 8.9 mg/dL (8.4-10.2); Carbon Dioxide 31 mmol/L (22-30); Chloride 96 mmol/L (98-107); Estimated CRCL calculation 209 ml/min; Estimated Glomerular Filt Rate > 60; Glucose 138 mg/dL (65-110); Potassium 4.6 mmol/L (3.4-5.0); Sodium 134 mmol/L (137-145)
[2021-10-20 07:10] LABS: INR 1.1; Prothrombin Time 14.4 Seconds (11.1-14.7)
[2021-10-20 07:35] LABS: D Dimer < 0.27 ug/mL (<0.48)
[2021-10-20] MEDS: ENOXAPARIN 40 MG/0.4 ML SYRINGE SUB-Q (09:23)
[2021-10-20] MEDS: ALBUTEROL SULFATE (*SP) INHALER 2 PUFF INHALATION ×4 (09:24→21:26)
--- NOTE | 2021-10-20 16:09 | PM.IMPN ---
Progress Note: A&P Assessment and Plan (1) Acute respiratory failure with hypoxia: Code(s): J96.01 - Acute respiratory failure with hypoxia Status: Acute Assessment and Plan: -Secondary to diffuse COVID pneumonia noted on chest CT. -Currently on 3L NC. (2) Pneumonia due to COVID-19 virus: Code(s): U07.1 - COVID-19; J12.82 - Pneumonia due to coronavirus disease 2019 Status: Acute Assessment and Plan: -Remdesivir and dexamethasone #6 -Continue isolation status -Albuterol MDI changed from prn to scheduled as he was having wheezing -CRP still mildly elevated but improving -currently on 3L NC, continue to wean as tolerated (3) Proteinuria: Code(s): R80.9 - Proteinuria, unspecified Status: Acute Assessment and Plan: -Patient describes having foamy urine. He will need to have this followed up as an outpatient. (4) Hypertension: Code(s): I10 - Essential (primary) hypertension Status: Inactive Assessment and Plan: -Blood pressures were reviewed and they are reasonable but not at goal. He has not been on antihypertensives for a couple of years. For now will monitor blood pressures closely and think about resuming medications depending on how he trends. Subjective Date/time seen: 10/20/21 16:09 Interval history: Pt is a 41-year-old male with history of pyelonephritis and hypertension no longer on medication, admitted to the hospital for acute respiratory failure secondary to covid pneumonia. Today patient is feeling okay. He still has mild cough. Having mild sob, weaned down to 3L NC. States he slept poorly last night. Review of Systems Review of Systems: General: Denies fevers Eyes: Denies vision changes ENT: Denies nasal congestion or sore throat Respiratory: + cough, +shortness of breath Cardiovascular: Denies chest pain or lower extremity edema Gastrointestinal: Denies abdominal pain, vomiting Genitourinary: Denies dysuria Musculoskeletal: Denies back pain Neurological: Denies headache or motor weakness Integumentary: Denies rash Exam Narrative: General: No acute distress, non toxic appearing, morbidly obese Eyes: PERRL, no scleral icterus HEENT: NCAT, external ears normal, MMM Respiratory: No respiratory distress, distant breath sounds bilaterally secondary to body habitus, lungs CTA bilaterally, no wheezing or rhonchi, on 3L NC Cardiovascular: RRR, no murmur Abdominal: Soft, nontender, non distended, no rebound or guarding Musculoskeletal: Moves all 4 extremities, no edema Neurological: A/Ox3, speech normal, no facial asymmetry Skin: Warm, dry, no rashes Psychiatric: Normal affect, normal mood Objective Data Vital Signs Vital Signs: Vital Signs - 24 hr 10/19/21 17:20 10/19/21 18:47 10/19/21 20:00 Temperature 97.3 F L Pulse Rate 89 95 Respiratory Rate 14 20 Blood Pressure 151/87 H Pulse Oximetry 94 93 93 10/19/21 20:38 10/20/21 00:00 10/20/21 04:00 Temperature 97.7 F 98.1 F Pulse Rate 78 71 76 Respiratory Rate 18 18 20 Blood Pressure 146/81 H 135/72 Pulse Oximetry 95 98 10/20/21 08:00 10/20/21 09:28 10/20/21 11:49 Temperature 97.1 F L 97.0 F L Pulse Rate 86 88 Respiratory Rate 20 20 Blood Pressure 141/80 H 140/82 Pulse Oximetry 91 91 95 10/20/21 15:35 Temperature 97.7 F Pulse Rate 102 H Respiratory Rate 20 Blood Pressure 136/90 Pulse Oximetry 94 Intake/Output Intake/Output: Intake & Output 10/17/21 10/18/21 10/19/21 10/20/21 23:59 23:59 23:59 23:59 Intake Total 1720 2220 2390 1010 Output Total 1150 900 Balance 570 1320 2390 1010 Meds/Results Medications: Active Medications Generic Name Dose Route Start Last Admin Trade Name Freq PRN Reason Stop Dose Admin Albuterol 2 puff 10/18/21 20:00 10/20/21 12:28 Albuterol Sulfate (*Sp) Inhaler INHALATION 2 puff QIDRT [facility] Administration Dexamethasone Sodium Phosphate 6 mg
[2021-10-20] MEDS: REMDESIVIR 100 MG/NS 250 ML 100 MG/250 ML BAG 250 MG IVPB (20:47)
[2021-10-21] VITALS (8 sets, daily range): BP systolic 117–156; BP diastolic 58–92; PULSE 85–98; RESP 17–20; TEMP 36.1–36.6; O2SAT 91–98
[2021-10-21 06:45] LABS: Basophils Percent Auto 0.4 % (0.2-1.2); Eosinophils Percent Auto 0.1 % (0-4.4); Hematocrit 44.1 % (42.0-52.0); Immature Granulocyte Absolute 0.14 K/mm3 (0.00-0.031); Immature Granulocyte Percent A 1.7 % (0-0.5); Lymphocytes Absolute Auto 1.45 K/mm3 (0.9-3.2); Lymphocytes Percent Auto 17.9 % (18.3-44.2); Mean Corpuscular HGB Conc 31.7 g/dl (32-36); Mean Corpuscular Hemoglobin 28.5 pg (26-34); Mean Corpuscular Volume 89.6 fl (80-100); Mean Platelet Volume 9.8 fl (7.4-10.4); Monocytes Absolute Auto 0.8 K/mm3 (0.1-0.6); Monocytes Percent Auto 10.1 % (2.6-8.5); Neutrophils Absolute Auto 5.6 K/mm3 (1.3-6.7); Neutrophils Percent Auto 69.8 % (45.5-73.1); Platelet Count Result 452 k/mm3 (150-375); Red Blood Count 4.92 M/mm3 (4.6-6.20); Red Cell Distribution Width 14.6 % (11.5-14.5); White Blood Count 8.1 K/mm3 (4.5-10.0)
[2021-10-21 06:54] LABS: INR 1.1; Prothrombin Time 14.4 Seconds (11.1-14.7)
[2021-10-21 06:58] LABS: Alanine Aminotransferase 49 U/L (4-50); Albumin Level 3.7 g/dL (3.5-5.1); Alkaline Phosphatase 67 U/L (38-126); Anion Gap 7 mmol/L (8-16); Aspartate Amino Transferase 40 U/L (17-59); Bilirubin,Total 0.4 mg/dL (0.2-1.3); Blood Urea Nitrogen 12 mg/dL (9-20); Calcium 8.8 mg/dL (8.4-10.2); Carbon Dioxide 30 mmol/L (22-30); Chloride 98 mmol/L (98-107); Estimated CRCL calculation 210 ml/min; Estimated Glomerular Filt Rate > 60; Glucose 135 mg/dL (65-110); Potassium 4.6 mmol/L (3.4-5.0); Sodium 135 mmol/L (137-145)
[2021-10-21] MEDS: ENOXAPARIN 40 MG/0.4 ML SYRINGE SUB-Q (08:24)
[2021-10-21] MEDS: ALBUTEROL SULFATE (*SP) INHALER 2 PUFF INHALATION ×3 (09:35→21:17)
--- NOTE | 2021-10-21 13:49 | PCRCNOTE ---
Window of time for administration has passed. See next scheduled administration.
--- NOTE | 2021-10-21 16:18 | PM.IMPN ---
Progress Note: A&P Assessment and Plan (1) Acute respiratory failure with hypoxia: Code(s): J96.01 - Acute respiratory failure with hypoxia Status: Acute Assessment and Plan: -Secondary to diffuse COVID pneumonia noted on chest CT. -Currently on 3L NC. (2) Pneumonia due to COVID-19 virus: Code(s): U07.1 - COVID-19; J12.82 - Pneumonia due to coronavirus disease 2019 Status: Acute Assessment and Plan: -Remdesivir and dexamethasone #7 -Continue isolation status -Albuterol MDI changed from prn to scheduled as he was having wheezing -CRP still mildly elevated but improving -currently on 3L NC, continue to wean as tolerated today his oxygen requirement is close to 1 L nasal cannula will continue to monitor possibly discharge patient tomorrow (3) Proteinuria: Code(s): R80.9 - Proteinuria, unspecified Status: Acute Assessment and Plan: -Patient describes having foamy urine. He will need to have this followed up as an outpatient. (4) Hypertension: Code(s): I10 - Essential (primary) hypertension Status: Inactive Assessment and Plan: -Blood pressures were reviewed and they are reasonable but not at goal. He has not been on antihypertensives for a couple of years. For now will monitor blood pressures closely and think about resuming medications depending on how he trends. Subjective Date/time seen: 10/21/21 16:18 Interval history: Pt is a 41-year-old male with history of pyelonephritis and hypertension no longer on medication, admitted to the hospital for acute respiratory failure secondary to covid pneumonia. Today patient is feeling okay. He still has mild cough. Having mild sob, weaned down to 3L NC. States he slept poorly last night. today patient states is feeling better denies any complaint of cough shortness of breath, will continue to monitor and may discharge patient tomorrow. Review of Systems Review of Systems: All systems reviewed & are unremarkable except as noted in HPI and below Exam Narrative: morbidly obese Patient is comfortable, NAD HEENT: eyes are clear and none icteric LUNGS: normal respiratory effort ABD: distended. Lower extremities: no edema SKIN: nonjaundiced Neuro: grossly intact. Objective Data Vital Signs Vital Signs: Vital Signs - 24 hr 10/20/21 20:00 10/20/21 21:26 10/21/21 00:00 Temperature 97.9 F 97.8 F Pulse Rate 91 93 Respiratory Rate 20 20 Blood Pressure 145/82 H 145/63 H Pulse Oximetry 94 94 91 10/21/21 04:00 10/21/21 08:00 10/21/21 09:40 Temperature 97.9 F 97 F L Pulse Rate 89 91 Respiratory Rate 20 20 Blood Pressure 137/76 141/81 H Pulse Oximetry 92 92 92 10/21/21 12:00 Temperature 97.4 F L Pulse Rate 88 Respiratory Rate 20 Blood Pressure 117/58 L Pulse Oximetry 97 Intake/Output Intake/Output: Intake & Output 10/18/21 10/19/21 10/20/21 10/21/21 23:59 23:59 23:59 23:59 Intake Total 2220 2390 2940 930 Output Total 900 Balance 1320 2390 2940 930 Meds/Results Medications: Active Medications Generic Name Dose Route Start Last Admin Trade Name Freq PRN Reason Stop Dose Admin Albuterol 2 puff 10/18/21 20:00 10/21/21 13:48 Albuterol Sulfate (*Sp) Inhaler INHALATION Not Given QIDRT [facility] Dexamethasone Sodium Phosphate 6 mg 10/14/21 22:15 10/20/21 20:47 Dexamethasone Sod Phos Inj 10 Mg/Ml 1 Ml Vial IV PUSH 10/23/21 21:01 6 mg DAILY@2100 [facility] Administration Enoxaparin Sodium 40 mg 10/15/21 09:00 10/21/21 08:24 Enoxaparin 40 Mg/0.4 Ml Syringe SUB-Q 40 mg DAILY [facility] Administration Guaifenesin/Codeine Phosphate 10 ml 10/16/21 13:37 Guaifenesin/Codeine (*Crx) 200/20 Mg 10 Ml Syrup PO Q4H PRN Cough Remdesivir 100 mg in 250 mls @ 250 mls/hr 10/19/21 22:00 10/20/21 21:45 IVPB 10/23/21 22:59 Infused Q24H [facility] Infusion Melatonin 5 mg 10/20/21 21:00 10/20/21 22:50 Melatonin
[2021-10-21] MEDS: REMDESIVIR 100 MG/NS 250 ML 100 MG/250 ML BAG 250 MG IVPB (20:15)
[2021-10-22] VITALS (9 sets, daily range): BP systolic 127–142; BP diastolic 66–94; PULSE 84–102; RESP 20; TEMP 36.2–36.3; O2SAT 86–99
[2021-10-22 06:57] LABS: Alanine Aminotransferase 44 U/L (4-50); Estimated CRCL calculation 209 ml/min; Estimated Glomerular Filt Rate > 60
[2021-10-22 07:01] LABS: INR 1.1; Prothrombin Time 14.4 Seconds (11.1-14.7)
[2021-10-22] MEDS: ALBUTEROL SULFATE (*SP) INHALER 2 PUFF INHALATION ×2 (08:03→12:37)
--- NOTE | 2021-10-22 08:56 | PCNWS ---
Weekly nutritional screen. Patient screened in for 7 day length of stay. Patient is tolerating current diet with adequate intake. No weight loss reported. No nutritional needs at this time.
[2021-10-22] MEDS: ENOXAPARIN 40 MG/0.4 ML SYRINGE SUB-Q (09:01)
--- NOTE | 2021-10-22 09:53 | PM.DS ---
DS: Admitting Diagnosis Discharge Date 10/22/2021 Admitting Diagnosis back pain and fever DS: Discharge Diagnosis Discharge Diagnosis (1) Acute respiratory failure with hypoxia: Code(s): J96.01 - Acute respiratory failure with hypoxia Status: Acute Assessment and Plan: -Secondary to diffuse COVID pneumonia noted on chest CT. -Currently on 3L NC. (2) Pneumonia due to COVID-19 virus: Code(s): U07.1 - COVID-19; J12.82 - Pneumonia due to coronavirus disease 2018 Status: Acute Assessment and Plan: -Remdesivir and dexamethasone #7 -Continue isolation status -Albuterol MDI changed from prn to scheduled as he was having wheezing -CRP still mildly elevated but improving -currently on 3L NC, continue to wean as tolerated today his oxygen requirement is close to 1 L nasal cannula will continue to monitor possibly discharge patient tomorrow (3) Proteinuria: Code(s): R80.9 - Proteinuria, unspecified Status: Acute Assessment and Plan: -Patient describes having foamy urine. He will need to have this followed up as an outpatient. (4) Hypertension: Code(s): I10 - Essential (primary) hypertension Status: Inactive Assessment and Plan: -Blood pressures were reviewed and they are reasonable but not at goal. He has not been on antihypertensives for a couple of years. For now will monitor blood pressures closely and think about resuming medications depending on how he trends. DS: Summary Hospital Course Reason for hospitalization: Chief Complaint: Back pain and fever. Narrative: This is a very pleasant 41-year-old male with history of pyelonephritis and hypertension no longer on medication who presented to the emergency department earlier today via private vehicle from home for evaluation of back pain and fever. Approximately 1 week ago he developed mild discomfort in the lower back as well as perhaps some mild dysuria and foamy urine. Since that time he has also developed symptoms of nasal congestion, cough productive of clear yellowish sputum, body aches, chills, decreased appetite, and fever up to 102? F. He has been taking ibuprofen at home though he continues to have symptoms and thus he came in for evaluation as he was concerned that perhaps he had another urinary tract infection. On arrival to the emergency department his SpO2 was in the mid to upper 80s on room air though he really has no significant complaints of shortness of breath. Chest x-ray showed bilateral infiltrates and a subsequent CTA of the chest showed diffuse lung disease consistent with pneumonia (no PE). He did test positive for SARS-CoV-2 by PCR. Urinalysis was negative for UTI. He was not vaccinated for COVID and has no known exposure to those positive for COVID. He denies headache, sore throat, chest pain, pleuritic pain, vomiting, and diarrhea. Hospital Course: -Remdesivir and dexamethasone #7 -Continue isolation status -Albuterol MDI changed from prn to scheduled as he was having wheezing -CRP still mildly elevated but improving -currently on 3L NC, continue to wean as tolerated today his oxygen requirement is close to 1 L nasal cannula will continue to monitor possibly discharge patient tomorrow today patient denies any cough shortness of breath, is on room air will discharge the patient today. Time Spent with Patient Time attestation: Total time spent providing and/or coordinating discharge services: Exam Narrative: morbidly obese Patient is comfortable, NAD HEENT: eyes are clear and none icteric LUNGS: normal respiratory effort ABD: distended. Lower extremities: no edema SKIN: nonjaundiced Neuro: grossly intact. DS: Data Data Completed and Pending Labs on day of discharge: Labs from last 24 hours 10/22/21 10/22/21 10/21/21 05:59 05:59 06:16 WBC 8.1 RBC 4.92 Hgb 14.0 Hct 44.1 MCV 89.6 MCH 28.5 MCHC 31.[address]
--- NOTE | 2021-10-22 11:52 | HOMEO2EVAL ---
Evaluation was performed at [facility] Home Oxygen Evaluation RC: Home Oxygen (O2) Evaluation Start: 10/21/21 19:07 Freq: ONCE Status: Active Protocol: RPE Activity Type Activity Date Activity User E-Sign Co-Sign Detail Recorded Client Recorded Date Recorded By Document 10/22/21 11:00 [email or web address] [email or web address] 10/22/21 11:51 DJO Document 10/22/21 11:05 [email or web address] [email or web address] 10/22/21 11:51 DJO Document 10/22/21 11:10 [email or web address] [email or web address] 10/22/21 11:51 DJO Document 10/22/21 11:15 [email or web address] [email or web address] 10/22/21 11:51 DJO Document 10/22/21 11:30 [email or web address] [email or web address] 10/22/21 11:51 DJO 10/22/21 10/22/21 10/22/21 11:00 11:05 11:10 Home O2 Evaluation Test Phase Resting Exercise Exercise Oxygen Delivery Room Air Room Air Nasal Cannula Oxygen Flow Rate (L/min) 1 Pulse Oximetry (90-100 %) 96 86 L 88 L Pulse Rate (60-100 beats/min) 87 99 100 Activity Tolerance Rating of Perceived Dyspnea (PD) Treatment Charges O2 Evaluation - Inpatient 10/22/21 10/22/21 11:15 11:30 Home O2 Evaluation Test Phase Exercise Resting Oxygen Delivery Nasal Cannula Room Air Oxygen Flow Rate (L/min) 2 Pulse Oximetry (90-100 %) 90 95 Pulse Rate (60-100 beats/min) 102 H 86 Activity Tolerance Excellent Rating of Perceived Dyspnea (PD) +1 Mild, Noticeable to the Participant but Not to an Observer Treatment Charges
--- NOTE | 2021-10-22 12:01 | PCRCNOTE ---
Home O2 2 liters with activity. Set up with [employer] phone number [phone]. Tank to be delivered today to room for discharge. RN notified.
== END 2021-10-22 14:40 | disposition home or self-care (01) | DRG 137 ==
LOC: ANHED 15:29 → ANH3MEDSUR 19:13
PROVIDERS: Physician Assistant; Admitting Provider Hospitalist; Emergency Provider Emergency Medicine; PCP Family Medicine; Visit Provider Family Medicine
DX: U07.1 COVID-19 (principal); J12.82 Pneumonia due to coronavirus disease 2019; I10 Essential (primary) hypertension; R80.9 Proteinuria, unspecified; E66.01 Morbid (severe) obesity due to excess calories; Z68.44 Body mass index [BMI] 60.0-69.9, adult
CPT/HCPCS: 36415; 36600; 71046; 71275; 80053; 81001; 82375; 82565; 82728; 82805; 83050; 83615; 83735; 84439; 84443; 84460; 84480; 84484; 85025; 85055; 85380; 85610; 85730; 86140; 93005; 94618; 94640; 96360; 96361; 96365; 96372; 96375; 99285; A9270; C9803; G0378; G0379; J1100; J1650; J7030; J7120; Q9967; U0003; U0005